=== PATIENT | female | born 1970 | race Caucasian/White ===

== ENCOUNTER → 2019-11-05 09:13 | Outpatient (CLI) | payer OTHER ==
[2015-08-31 11:04] VITALS: BMI 28.7
[~2019-11-05 09:13] MED LIST: HYDROCODONE-APA1 TAB PO; IBUPROFEN200 MG PO; PRILOSEC20 MG PO; XANAX1 MG PO
== END | disposition home or self-care (01) ==
LOC: D.US 09:13
PROVIDERS: ATTEND Internal Medicine Gastroenterology
DX: R11.0 Nausea (principal); R10.11 Right upper quadrant pain; R19.4 Change in bowel habit

== ENCOUNTER → 2019-12-22 12:45 | Outpatient (CLI) | payer OTHER ==
[2015-08-31 11:04] VITALS: BMI 28.7
== END | disposition home or self-care (01) ==
LOC: D.NM 12-20 13:00
PROVIDERS: ATTEND Internal Medicine Gastroenterology
DX: R10.84 Generalized abdominal pain (principal); R11.0 Nausea

== ENCOUNTER 2020-01-13 05:45 | Day surgery (SDC) | payer OTHER ==
[2020-01-12 14:50] LABS: BASOPHILS 0.2 % (0-2); EOSINOPHILS 0.7 % (0-7); HEMATOCRIT 43.6 % (36.0-48.0); HEMOGLOBIN 15.1 g/dL (12-16); IMMATURE GRANULOCYTES 0.2 % (0-5); LYMPHOCYTES 21.5 % (15-50); MCH 33.3 pg (26.0-34.0); MCHC 34.6 g/dL (31.0-37.0); MEAN PLATELET VOLUME 11.1 fL (7.4-10.4); NEUTROPHILS 71.4 % (40-80); RBC 4.54 10x6/uL (4.00-5.40); RDW 12.3 % (11.5-14.5); WBC 10.5 10x3/uL (4.8-10.8)
[2020-01-12 14:51] LABS: PLATELET COUNT 214 10x3/uL (130-400)
[2020-01-12 15:57] LABS: CALC OSMOLALITY 277 mosm/kg (275-300); CALCIUM 9.3 mg/dL (8.5-10.1); CARBON DIOXIDE 26.1 mmol/L (21.0-32.0); CHLORIDE - SERUM 102 mmol/L (98-107); CREATININE - SERUM 0.8 mg/dL (0.6-1.3); GLUCOSE 98 mg/dL (74-106); POTASSIUM - SERUM 4.3 mmol/L (3.5-5.1); SODIUM 140 mmol/L (136-145); UREA NITROGEN 9 mg/dL (7-18); eGFR NON AFRICAN AMERICAN 80 mL/min (90-120)
[~2020-01-13] VITALS: Ht 162.6 cm; Wt 80.3 kg
--- NOTE | ~2020-01-13 | OP ---
PATIENT NAME: RENNY MO MEDICAL RECORD: [id number] :66 LOCATION:D.OPS ADMISSION DATE: SURGEON: SULAIMAN ROJO MD DATE OF OPERATION: 01/13/2020 PREOPERATIVE DIAGNOSES: 1. Biliary dyskinesia. 2. Gastroesophageal reflux disease. POSTOPERATIVE DIAGNOSES: 1. Biliary dyskinesia. 2. Gastroesophageal reflux disease. PROCEDURE: Laparoscopic cholecystectomy. SURGEON: Sulaiman Rojo MD REPORT OF PROCEDURE: The patient's abdomen was prepped and draped in sterile fashion. A cutdown was made on the superior aspect of the umbilicus, 0 Vicryls were placed in the fascia bilaterally and the fascia was incised with 15-blade. I then bluntly entered the peritoneal cavity and placed a 12-mm Wellington port. Under direct visualization, a 5-mm trocar was placed in the epigastrium and 2 more 5-mm trocars were placed in the right subcostal region. The gallbladder was grasped and elevated. The cystic artery and cystic duct were dissected free and I had my critical view of safety. These were clipped proximally and distally and ligated in standard fashion. The gallbladder was then taken off the liver bed using electrocautery and placed into an Endo Catch bag. The right upper quadrant was irrigated out and any bleeding from the liver bed was treated with electrocautery. At this point, the ports and insufflation were then removed and the gallbladder was taken out through the umbilicus. The umbilical fascia was closed with interrupted 0 Vicryls times 3. The wounds were irrigated out with normal saline and infused with 10 mL of 0.25% Marcaine with epinephrine. The skin incisions were all closed with subcutaneous 5-0 Monocryl and dressed appropriately. COMPLICATIONS: None. CONDITION: Stable. ANESTHESIA: General endotracheal and local. BLOOD LOSS: Minimal. TRANSINT:[id number] Voice Confirmation ID: [id number] DOCUMENT ID: [id number] SULAIMAN ROJO MD CC: JACOB SINGH [id number] DICTATION DATE: 01/13/2053 SPONGE FISHERMAN: 01/13/20 100[address] [facility] [address] [place] [address]
[~2020-01-13 05:45] MED LIST changes: +AMBIEN10 MG PO; +VALTREX1000 MG PO
[2020-01-13 06:16] VITALS: BP 119/83; Ht 162.6 cm; Wt 80.3 kg
[2020-01-13] MEDS ORDERED: HYDROCODON-ACE1 EA10 PO (09:44)
--- NOTE | 2020-01-13 10:26 | NUR ---
0955 SLOW ONSET OF INSPIRATORY SQUEAK, PATIENT SITTING UPRIGHT WITH LABORED BREATHING. SAO2 99%. DUONEB upd STARTED
--- NOTE | 2020-01-13 10:28 | NUR ---
1010 LUNG SOUNDS CLEAR. PATIENT STATES "BREATHING BETTER"
--- NOTE | 2020-01-13 13:28 | NUR ---
1200-REMOVED IN WITH CATH INTACT, DISPOSED INTO SHARPS,COVERED SITE WT AMARJIT, SECURED WITH MEDIPORE TAPE.
--- NOTE | 2020-01-13 13:29 | NUR ---
1215-DISCHARGE CRITERIA MET. REVIEWED POST OPERATIVE INSTRUCTIONS AND FOLLOW UP APPOINTMENT. VERBALIZED UNDERSTANDING. ESCORTED OUT VIA W/C WITH SPOUSE DRIVING PT HOME. DRESSINGS CDI.
--- NOTE | 2020-01-13 13:31 | NUR ---
1222- REC'D T.O FROM TO CALL IN ZOFRAN 4MG 1 BY MOUTH EVERY 4-6 HRS PRN #10 TO [facility]. PT AND SPOUSE AWARE OF CALL IN OF PRESCRIPTION.
== END 2020-01-13 12:15 | disposition home or self-care (01) ==
LOC: D.OPS 05:45 → D.PAN 07:30 → D.OPS 08:30 → D.PAN 08:45 → D.OPS 11:00 → D.PAN 11:00 → D.OPS 12:15
PROVIDERS: ATTEND Surgery
DX: K82.8 Other specified diseases of gallbladder (principal); K21.0 Gastro-esophageal reflux disease with esophagitis